=== PATIENT | male | born 1955 | race Caucasian/White ===

== ENCOUNTER 2021-03-13 17:45 | Emergency (ER) | payer MEDICARE, SELFPAY ==
[2021-03-13 17:46] VITALS: BP 151/105; PULSE 91; RESP 16; TEMP 36.8; O2SAT 96; BMI 21.6
--- NOTE | 2021-03-13 18:09 | RAD_ITS ---
STUDY: X-RAY LEFT FOOT, GREAT TOE REASON FOR EXAM: Male, 65 years old. while mowing patient tripped and ran over left foot. partial left great toe amputation. Attention great toe. Hx of previous fx of great toe about 20 years ago. TECHNIQUE: 3 view(s) of the toe were obtained. COMPARISON: None. FINDINGS: A comminuted fracture is present through the mid shaft as well as the head of the distal phalanx of the great toe with mild displacement and surrounding soft tissue swelling as well as laceration of the soft tissues. The remaining bony structures of the forefoot are unremarkable. Normal metatarsophalangeal (M.T.P) joint. Normal interphalangeal joints. Normal remaining phalanges and interphalangeal joints. RAD/Toe(s) Min 2 Views IMPRESSION: 1. A comminuted fracture is present through the mid shaft as well as the head of the distal phalanx of the great toe with mild displacement and surrounding soft tissue swelling as well as laceration of the soft tissues. Electronically Signed: Willis Mcnamara MD at 19:23 EDT , Service support ,
--- NOTE | 2021-03-13 18:15 | EDS_ITS ---
HPI History of Present Illness Chief Complaint: Lower Extremity Injury Informant: patient Narrative Narrative: Patient is a 65-year-old male with no known medical problems who presents to the emergency department for injury to left great toe. He states he was mowing his lawn whenever he tried to step off. He stepped off and slipped into a hole. His left foot went under the mower and he cut his great toe. He is not any blood thinning medications. Denies any other injury from the fall. Did not strike his head or lose consciousness. The toe is wrapped and bleeding controlled on arrival. He denies any chest pain, shortness of breath or lightheadedness. He does not take anything for this. This occurred just prior to arrival in the ED. Last tetanus shot was approximately 20 years ago. PFSH PFSH Home Medications cephalexin 500 mg PO TID 7 Days #21 cap 03/13/21 [Rx Last Taken Unknown] hydrocodone-acetaminophen 1 tab PO Q8H PRN 3 Days #10 tab 03/13/21 [Rx Last Taken Unknown] Allergy/AdvReac Type Severity Reaction Status Date / Time No Known Allergies Allergy Verified 03/13/21 17:50 Social History Smoking Status: Former smoker ROS ROS ED Constitutional Constitutional ED: Denies chills or fever(s) ENT ENT ED: Denies rhinorrhea Cardiovascular Cardiovascular: Denies chest pain Respiratory/Chest Respiratory/Chest: Denies cough or dyspnea Gastrointestinal Gastrointestinal: Denies abdominal pain or vomiting Musculoskeletal Musculoskeletal: Denies back pain or neck pain Integumentary Reports other Details: Partial toe amputation Neurologic Neurologic: Denies headache(s) or weakness EXAM Physical Exam Const Vital Signs: 03/13/21 17:46 03/13/21 21:16 Temperature 98.2 F Temperature Source Oral Pulse Rate 91 76 Respiratory Rate 16 18 Blood Pressure 151/105 H 132/102 H Blood Pressure Mean 120 113 Pulse Ox 96 97 Oxygen Delivery Method Room Air Positive well nourished and well developed General Appearance ED: well developed HEENT Negative for trauma Eyes PERRL and EOMs intact bilaterally Neck supple Chest Wall inspection of chest normal Resp normal respiratory effort Cardio regular rate GI non-distended Extremity Extremity Narrative: Partial amputation of left great toe. The toe is attached at the medial aspect. The laceration starts just proximal to the nailbed. The old nail will lift off. Bone is exposed. There is contamination of the wound with grass. There is slow venous ooze present. Sensation partially intact. Entire toe present. Neuro Sensorium / Orientation: alert Psych mental status grossly normal MDM MDM MDM Narrative Medical decision making narrative: Patient presents the ED for partial amputation of left great toe secondary to lawnmower accident. Patient will be updated on tetanus. He will have a digital block of the toe. X-ray being obtained. Comminuted fracture of the midshaft of the distal phalanx seen on x-ray. This is considered open fracture. It was extensively irrigated, debrided. I did speak with the on-call sheet pile hammer operator, Dr. Alejandro. He asked for a wound culture to be obtained in case it does get infected. Patient given a dose of Ancef here and sent home with a prescription for Keflex. Patient understands that this will likely have poor wound healing and could end up losing the toe. Patient understands this. It was repaired here in the emergency department and he will need close follow-up. He is to get a hold of the sheet pile hammer operator to be seen tomorrow. The wound was dressed with antibiotic ointment and nonadherent ba ndages. He is given a postop shoe as well. This time will discharge home in stable condition. Return precautions are reviewed. He ius to monitor for evidence of infection. He understands and is agreeable this plan. All questions were answered. Radiography Diagnostic Testing: Radiology Impression Toe X-Ray 03/13/21 18:09 IMPRESSION: 1. A comminuted fracture is present through the mid shaft as well as the head of the distal phalanx of the great toe with mild displacement and surrounding soft tissue swelling as well as laceration of the soft tissues. Electronically Signed: Willis Mcnamara MD at 19:23 EDT , Service support , Toe x-ray interpreted by myself. There is comminuted fracture of the distal phalanx. Agree with radiologist interpretation. Procedures Lacerations Toe: Length: 1.38 in Shape: Flap Prep: Sterile Conditions and Shure-Clens Laceration repair: Debrideded (Extensive debridement of grass), Digital block (5cc lidocaine without epi) and Irrigated (1500mL) Number of Sutures/[place]: 10 Suture Information: - (1 deep Vicryl absorbable suture was placed with 5-0 suture. 9 Ethilon simple interrupted 4-0 sutures externally) Discharge Plan Triage Chief Complaint: Lower Extremity Injury ED Provider: Clarence Villalta Dx/Rx/DC Orders Clinical Impression: Partial traumatic amputation of left great toe Instructions: ED Finger Tip Amputation Open ... Prescriptions: New cephalexin 500 mg capsule 500 mg PO TID 7 Days Qty: 21 RF: 0 hydrocodone-acetaminophen 5-325 mg tablet 1 tab PO Q8H PRN (Reason: pain) 3 Days Qty: 10 RF: 0 Primary Care Provider: Care Physician,No Primary Referrals: John Alejandro DPM [STAFF PHYSICIAN] - 1 Day Care Physician,No Primary [Primary Care Provider] - Disposition Disposition: Home, Self Care Discharge Date/Time: 03/13/21 21:42
[2021-03-13] MEDS: Diphth,Pertuss(Acell),Tet Vac 0.5 ML Vial IM (18:22)
[2021-03-13] MEDS: Lidocaine 1% (20 ml mdv) 20 ML Vial 5 ML INFILT (19:42)
[2021-03-13] MEDS: Cefazolin 1 GM/5 ML Vial IM (19:42)
[2021-03-13 21:16] VITALS: BP 132/102; BP 136/102; PULSE 72; PULSE 76; RESP 16; RESP 18; O2SAT 97
== END 2021-03-13 21:42 | disposition home or self-care (01) ==
PROVIDERS: Emergency Provider Emergency Medicine
DX: S98.122A Partial traumatic amputation of left great toe, initial encounter (principal); W31.89XA Contact with other specified machinery, initial encounter
CPT/HCPCS: 12001; 11750; 11760; 73660; 87070; 87077; 87186; 87205; 90715; 96372; 99285

== ENCOUNTER → 2021-03-14 11:07 | Outpatient (CLI) | payer MEDICARE, SELFPAY ==
[2021-03-13 17:46] VITALS: BMI 21.6
[2021-03-14 12:15] LABS: Absolute Lymphocyte Count 1.43 X10^3/uL (0.83-4.51); Absolute Neutrophil Count 12.2 X10^3/uL (2.0-7.7); Basophil# 0.04 X10^3/uL; Basophil% 0.3 % (0-1); Eosinophil# 0.02 X10^3/uL; Eosinophils% 0.1 % (0-5); Hematocrit 48.6 % (40-54); Hemoglobin 15.8 g/dL (13.0-16.5); Lymphocyte # 1.43 X10^3/ul (0.83-4.51); Lymphocyte % 9.7 % (19-41); Mean Corp Hgb Conc 32.5 g/dL (32-36); Mean Corpuscular Hgb 30.8 pg (27.0-32.0); Mean Corpuscular Volume 94.7 fL (80-94); Mean Platelet Vol. 10.9 fl (6.2-12.0); Monocyte# 0.93 X10^3/uL; Monocyte% 6.3 % (0-10); NRBC Flagged by Analyzer 0 % (0-5); Neutrophil % 83.1 % (47-70); Platelet Count 306 K/mm3 (150-450); Red Blood Count 5.13 M/mm3 (4.6-6.2); White Blood Count 14.7 K/mm3 (4.4-11.0)
[2021-03-14 13:30] LABS: ALB/GLOB Ratio 1.1 RATIO (0.9-2.4); AST(SGOT) 29 U/L (15-37); Alanine Aminotransfer ALT/SGPT 20 U/L (16-61); Albumin, Serum 4.2 g/dL (3.2-5.0); Alkaline Phosphatase 65 U/L (45-117); Anion Gap 5 (5-15); BUN 19 mg/dL (7-18); Calcium,Total 9.2 mg/dL (8.5-10.1); Chloride 107 mmol/L (98-107); EST Glomerular Filtration Rate 80 mL/min (>60); Est Glom Filt Rate - Afr Amer 96 mL/min (>60); Globulin 3.7 g/dL (2.2-4.2); Glucose 102 mg/dL (74-106); Potassium 3.9 mmol/L (3.5-5.1); Protein, Total 7.9 g/dL (6.4-8.2); Sodium Level 137 mmol/L (136-145)
== END ==
PROVIDERS: Referring Provider Podiatrist; Visit Provider Podiatrist
DX: S91.115A Laceration without foreign body of left lesser toe(s) without damage to nail, initial encounter (principal)
CPT/HCPCS: 36415; 80053; 85025